=== PATIENT | female | born 1965 | race Caucasian/White ===

== ENCOUNTER 2016-11-11 17:13 | Inpatient (IN) | payer MEDICARE, MEDICAID ==
[~2016-11-11] VITALS: Ht 162.6 cm; Wt 90.3 kg
[~2016-11-11 17:13] MED LIST: LURA80 PO; OXCA150T17 PO
[2016-11-11] MEDS ORDERED: PNEUMOCOCCAL VACCINE POLYVALENT 0.5 ML VIAL [PPSV23] IM ONE (20:30)
[2016-11-11] MEDS: ZOLPIDEM TARTRATE 10 MG TABLET PO PRN (20:42)
[2016-11-11] MEDS: LORazepam 2 MG TABLET PO PRN (20:42)
[2016-11-12] MEDS: LORazepam 2 MG TABLET PO PRN ×3 (09:15→17:27)
[2016-11-12] MEDS ORDERED: ACETAMINOPHEN 325 MG TABLET PO PRN (09:45)
[2016-11-12] MEDS ORDERED: CloNIDine HCL 0.1 MG TABLET PO PRN (09:45)
[2016-11-12] MEDS ORDERED: ALBUTEROL SULFATE HFA 90 MCG/PUFF 8 GM INHALER IH PRN (09:45)
[2016-11-12] MEDS ORDERED: IBUPROFEN 600 MG TABLET PO PRN (09:45)
[2016-11-12] MEDS ORDERED: LOPERAMIDE HCL 2 MG CAPSULE PO PRN (09:45)
[2016-11-12] MEDS ORDERED: MAGNESIUM HYDROXIDE SUSPENSION 30 ML UDCUP PO PRN (09:45)
[2016-11-12] MEDS ORDERED: BENZOCAINE/MENTHOL LOZENGE MM PRN (09:45)
[2016-11-12] MEDS ORDERED: BACITRACIN 28.4 GM OINTMENT TP PRN (09:45)
[2016-11-12] MEDS ORDERED: PETROLATUM,WHITE 71 GM JELLY TP PRN (09:45)
[2016-11-12] MEDS ORDERED: ONDANSETRON HCL 4 MG TABLET PO PRN (09:45)
[2016-11-12] MEDS ORDERED: MAG HYDROX/AL HYDROX/SIMETH ES 30 ML SUSPENSION UDCUP PO PRN (09:45)
[2016-11-12 14:36] VITALS: BP 103/56
[2016-11-12] MEDS: ZOLPIDEM TARTRATE 10 MG TABLET PO PRN (21:10)
[2016-11-13 06:19] VITALS: BP 116/82
[2016-11-13] MEDS: LORazepam 2 MG TABLET PO PRN ×3 (06:28→19:33)
[2016-11-13] MEDS: PALIPERIDONE 3 MG ER TABLET PO SCH ×2 (08:32→16:19)
[2016-11-13 16:00] VITALS: BP 123/79
[2016-11-13] MEDS ORDERED: PERMETHRIN 1% 60 ML LOTION TP ONE (17:00)
[2016-11-13] MEDS: ZOLPIDEM TARTRATE 10 MG TABLET PO PRN (21:42)
[2016-11-13] MEDS ORDERED: HYDROCORTISONE 0.5% 30 GM CREAM TP PRN (21:45)
[2016-11-14] MEDS: LORazepam 2 MG TABLET PO PRN ×3 (08:48→18:20)
[2016-11-14] MEDS: PALIPERIDONE 3 MG ER TABLET PO SCH ×2 (08:48→16:19)
[2016-11-14 16:00] VITALS: BP 110/69
[2016-11-14] MEDS: ZOLPIDEM TARTRATE 10 MG TABLET PO PRN (21:06)
[2016-11-15 07:59] LABS: BASOPHILS # (AUTO) 0.01 K/uL (0.00-0.20); BASOPHILS % (AUTO) 0.3 % (0.0-2.0); EOSINOPHILS # (AUTO) 0.15 K/uL (0.00-0.70); EOSINOPHILS % (AUTO) 2.61 % (1.0-6.0); HEMATOCRIT 43.3 % (36-46); HEMOGLOBIN 14.4 g/dL (12.0-16.0); LYMPHOCYTES # (AUTO) 1.7 K/uL (1.0-4.8); LYMPHOCYTES % (AUTO) 30.1 % (22.0-44.0); MEAN CORPUSCULAR HGB CONC 33.2 G/dL (31.0-37.0); MEAN CORPUSCULAR VOLUME 93 fL (80-100); MONOCYTES # (AUTO) 0.5 K/uL (0.1-1.0); MONOCYTES % (AUTO) 8.9 % (2.0-9.0); NEUTROPHILS # (AUTO) 3.3 K/uL (1.8-7.7); NEUTROPHILS % (AUTO) 58.2 % (40.0-70.0); PLATELET COUNT (AUTO) 240 K/uL (150-450); RED BLOOD CELL COUNT(AUTO) 4.64 MIL/uL (4.00-5.20); RED CELL DISTRIBUTION WIDTH 13.6 % (11.5-14.5); WHITE BLOOD COUNT (AUTO) 5.6 K/uL (4.5-11.0)
[2016-11-15 08:20] LABS: HEMOGLOBIN A1C 5.7 % (4.5-6.2)
[2016-11-15 08:23] LABS: ALANINE AMINOTRANSFERASE 47 U/L (12-78); ALBUMIN 3.5 g/dL (3.4-5.0); ANION GAP 7 mmol/L (8-16); ASPARTATE AMINOTRANSFERASE 26 U/L (15-37); BILIRUBIN,TOTAL 0.1 mg/dL (0.1-1.0); CALCIUM, TOTAL 8.8 mg/dL (8.8-10.5); CARBON DIOXIDE 28 mmol/L (22-29); CHLORIDE 103 mmol/L (98-107); CHOL/HDL RATIO 5.9 (3.9-5.7); CREATININE 0.69 mg/dL (0.60-1.30); GLOMERULAR FILTR. RATE CALC > 60 mL/min (>60); POTASSIUM 4.6 mmol/L (3.5-5.1); SODIUM SERUM 138 mmol/L (136-145); THYROID STIMULATING HORMONE 2.16 uIU/mL (0.36-3.74); TOTAL PROTEIN, SERUM 7.1 g/dL (6.4-8.2); UREA NITROGEN, BLOOD 16 mg/dL (7-18)
[2016-11-15] MEDS: LORazepam 2 MG TABLET PO PRN ×3 (08:54→18:25)
[2016-11-15] MEDS: PALIPERIDONE 3 MG ER TABLET PO SCH ×2 (08:54→18:25)
[2016-11-16 02:32] VITALS: BP 113/74
[2016-11-16] MEDS: PALIPERIDONE 3 MG ER TABLET PO SCH ×2 (08:09→16:05)
[2016-11-16] MEDS: LORazepam 2 MG TABLET PO PRN ×2 (08:09→16:43)
[2016-11-16] MEDS ORDERED: PERMETHRIN 1% 60 ML LOTION TP ONE (10:30)
[2016-11-16 16:07] VITALS: BP 109/68
[2016-11-16] MEDS: ZOLPIDEM TARTRATE 10 MG TABLET PO PRN (21:02)
[2016-11-17 04:55] VITALS: BP 110/74
[2016-11-17] MEDS: LORazepam 2 MG TABLET PO PRN ×3 (04:58→16:16)
[2016-11-17 08:27] VITALS: BP 130/79
[2016-11-17] MEDS: PALIPERIDONE 3 MG ER TABLET PO SCH ×2 (09:16→16:16)
[2016-11-17 16:00] VITALS: BP 114/70
[2016-11-17] MEDS ORDERED: PALI3 PO (18:39)
== END 2016-11-17 19:25 | disposition home or self-care (01) | DRG 885 ==
LOC: B3A 19:16 → EDSTATUS 19:26 → B3A 11-13 10:28
PROVIDERS: ADMIT Psychiatry & Neurology Child & Adolescent Psychiatry; ATTEND Psychiatry & Neurology Child & Adolescent Psychiatry
DX: F25.1 Schizoaffective disorder, depressive type (principal); J44.9 Chronic obstructive pulmonary disease, unspecified; F15.90 Other stimulant use, unspecified, uncomplicated; E78.5 Hyperlipidemia, unspecified; E66.9 Obesity, unspecified; G47.00 Insomnia, unspecified; F17.200 Nicotine dependence, unspecified, uncomplicated; R45.84 Anhedonia; F14.90 Cocaine use, unspecified, uncomplicated; J02.9 Acute pharyngitis, unspecified; F60.3 Borderline personality disorder; R45.87 Impulsiveness; Z68.34 Body mass index [BMI] 34.0-34.9, adult; Z59.0 Homelessness; Z88.0 Allergy status to penicillin; Z56.0 Unemployment, unspecified; Z71.6 Tobacco abuse counseling; Z28.21 Immunization not carried out because of patient refusal; Z79.899 Other long term (current) drug therapy
CPT/HCPCS: 83036; 84439; 84443; 87081